=== PATIENT | female | born 1995 | race Caucasian/White ===

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

== ENCOUNTER 2023-03-04 18:23 | Emergency (ER) | payer BC, OTHER ==
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
[2023-03-04 18:46] VITALS: TEMP 98.6
[2023-03-04] MEDS ORDERED: ACETAMINOPHEN TAB 325 MG TAB PO STA (21:45)
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
[2023-03-04 22:20] VITALS: BP 115/74; PULSE 78; RESP 20
== END 2023-03-04 22:13 | disposition home or self-care (01) ==
LOC: EC 18:23
DX: O9A.213 Injury, poisoning and certain other consequences of external causes complicating pregnancy, third trimester (principal); M54.2 Cervicalgia; Z3A.35 35 weeks gestation of pregnancy; V89.2XXA Person injured in unspecified motor-vehicle accident, traffic, initial encounter; Y92.410 Unspecified street and highway as the place of occurrence of the external cause
CPT/HCPCS: 72050; 99284

== ENCOUNTER 2023-03-04 22:00 | Outpatient (CLI) | payer OTHER ==
[2023-03-04 23:28] VITALS: BP 114/60; PULSE 70; RESP 16; TEMP 97.1
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
== END 2023-03-04 22:50 | disposition home or self-care (01) ==
LOC: FBPOP 22:00
PROVIDERS: ATTEND Obstetrics & Gynecology
DX: O9A.213 Injury, poisoning and certain other consequences of external causes complicating pregnancy, third trimester (principal); Z3A.35 35 weeks gestation of pregnancy
CPT/HCPCS: 59025; 99213

== ENCOUNTER 2023-04-15 09:42 | Inpatient (IN) | payer OTHER ==
[2023-04-15] MEDS ORDERED: CARBOPROST TROMETHAMINE 250 MCG/ML 1 ML AMP IM PRN (10:14)
[2023-04-15] MEDS ORDERED: METHYLERGONOVINE 0.2 MG/ML 1 ML AMP IM PRN (10:14)
[2023-04-15] MEDS ORDERED: miSOPROStoL 200 MCG TAB PO PRN (10:14)
[2023-04-15] MEDS ORDERED: OXYTOCIN 10 UNIT/ML 1 ML VIAL IM PRN (10:14)
[2023-04-15] MEDS ORDERED: TERBUTALINE 1 MG/ML VIAL SQ PRN (10:14)
[2023-04-15] MEDS ORDERED: TRANEXAMIC 1,000 MG/100ML-NACL 1,000 MG in EMPTY BAG 1 BAG IV PRN (10:14)
[2023-04-15] MEDS ORDERED: OXYTOCIN 30 UNITS/500 ML NS 30 UNIT in SALINE 1 500ML.BAG IV SCH (10:15)
[2023-04-15] MEDS: LACTATED RINGERS 1,000 ML IV SCH (10:38)
[2023-04-15 10:54] LABS: Basophils % (A) 0 %; Eosinophils # (A) 0.1 k/uL (0-0.7); Eosinophils % (A) 1 %; HCT 34.7 % (34.0-46.0); HGB 11.5 gm/dL (11.4-16.0); Lymphocytes # (A) 1.5 k/uL (1.0-4.8); Lymphocytes % (A) 15 %; MCH 30.6 pg (25.0-35.0); MCHC 33.2 g/dL (31.0-37.0); MCV 92.3 fL (80.0-100.0); Mean Platelet Volume 7.7; Monocytes # (A) 0.5 k/uL (0-1.0); Monocytes % (A) 5 %; Neutrophils # (A) 7.3 k/uL (1.3-7.7); Neutrophils % (A) 76 %; Platelet Count 250 k/uL (150-450); RBC 3.76 m/uL (3.80-5.40); RDW 14.2 % (11.5-15.5); WBC 9.5 k/uL (3.8-10.6)
[2023-04-15] MEDS: OXYTOCIN 30 UNITS/500 ML NS 30 UNIT in SALINE 1 500ML.BAG IV SCH (11:24)
--- NOTE | 2023-04-15 12:22 | P.HPOB ---
History of Present Illness H&P Date: 04/15/23 Chief Complaint: Leaking of fluid This patient is a pleasant 28-year-old 1 para 0 female estimated date of confinement 04/08/2023 estimated gestational age 41-0/7 weeks who presents to labor and delivery with complaints of gush of fluid that happened earlier this morning. Renal care is per Dr. Garay appears to be uncomplicated. Review of Systems Genitourinary: Reports Menstruation: Reports amenorrhea Past Medical History Past Medical History: No Reported History History of Any Multi-Drug Resistant Organisms: None Reported Past Surgical History: No Surgical Hx Reported Past Anesthesia/Blood Transfusion Reactions: No Reported Reaction Past Psychological History: Anxiety Smoking Status: Former smoker, Vaper Past Alcohol Use History: None Reported Past Drug Use History: None Reported - Past Family History Mother Additional Family Medical History / Comment(s): diverticulitis Medications and Allergies Home Medications Medication Instructions Recorded Confirmed Type Vit No.179/Iron/Folic 1 each PO DAILY 03/04/23 04/15/23 History [ Tablet] Allergies Allergy/AdvReac Type Severity Reaction Status Date / Time No Known Allergies Allergy Verified 04/15/23 10:01 Exam Vital Signs Temp Pulse Resp BP Pulse Ox 04/15/23 11:12 97.2 F L 100 16 127/84 04/15/23 10:14 97.2 F L 100 16 127/84 100 Intake and Output 04/14/23 04/15/23 04/15/23 22:59 06:59 14:59 Other: Weight 81.647 kg - OBG Physical Exam Abdomen: bowel sounds normal, no diffuse tenderness, no bruit present, no guarding noted, no hepatomegaly, no splenomegaly, no mass Vulva: both: normal Vagina: normal moisture, no discharge Cervix: no lesion (Cervix is 3-4 cm dilated percent effaced -2 station with a bulging bag), no discharge Uterus: enlarged Results blood work shows she is AB+, rubella is equivocal, RPR is nonreactive, group B strep was negative, most recent ultrasound showed estimated weight 8 lbs. 4 oz. Result Diagrams: 04/15/23 10:35 Abnormal Lab Results - Last 24 Hours (Table) 04/15/23 Range/Units 10:35 RBC 3.76 L (3.80-5.40) m/uL Assessment and Plan Assessment: This is a pleasant 28-year-old 1 para 0 female 41-0/7 weeks gestation with spontaneous rupture membranes. Patient's having very irregular contractions and repeat exam shows no cervical change for this reason we'll begin augmentation of labor. At this point we anticipate vaginal delivery. (1) 41 weeks gestation of Current Visit: Yes Status: Acute Code(s): O48.0 - POST-TERM ; Z3A.41 - 41 WEEKS GESTATION OF SNOMED Code(s): 96730141 (2) Spontaneous rupture of amniotic membranes Current Visit: Yes Status: Acute Code(s): JOG9454 - SNOMED Code(s): 868190653
[2023-04-15] MEDS ORDERED: fentaNYL (PF) 50 MCG/ML 5 ML AMP ONE (16:00)
[2023-04-15] MEDS ORDERED: SODIUM CHLORIDE 0.9% 250 ML BAG ONE (16:00)
[2023-04-15] MEDS ORDERED: ROPIVACAINE 5 MG/ML 30 ML VIAL ONE (16:00)
[2023-04-16] MEDS ORDERED: BENZOCAINE/MENTHOL SPRAY 1 GM/SPRAY AEROSOL TOPICAL PRN (00:25)
[2023-04-16] MEDS ORDERED: diphenhydrAMINE 25 MG CAP PO PRN (00:25)
[2023-04-16] MEDS ORDERED: HYDROCORTISONE 2.5% RECTAL CREAM 30 GM TUBE RECTAL PRN (00:25)
[2023-04-16] MEDS ORDERED: ZOLPIDEM 5 MG TAB PO PRN (00:25)
[2023-04-16] MEDS ORDERED: SIMETHICONE 80 MG CHEWABLE PO PRN (00:25)
[2023-04-16] MEDS ORDERED: bisacodyL 10 MG SUPP RECTAL PRN (00:25)
[2023-04-16] MEDS ORDERED: diphenhydrAMINE 50 MG/ML 1 ML VIAL IVP PRN (00:25)
[2023-04-16] MEDS ORDERED: LANOLIN CREAM 5 GM TUBE TOPICAL PRN (00:25)
--- NOTE | 2023-04-16 00:31 | P.PROBDLV ---
Vaginal Delivery Note - . Vaginal Delivery Note: Normal vaginal delivery viable male infant Apgars 9 and 9 delivery time was 0005 hours. Please see dictated H&P for intimate details of this patient's admission. Brief summary this is a pleasant 28-year-old 1 para 0 female 41-0/7 weeks gestation admitted to labor and delivery with spontaneous rupture membranes approximately 7:00 this morning. On admission patient is 3-4 cm dilated. At that time there is a fore bag which is ruptured. Patient has Pitocin augmentation of labor and progresses. She does request an epidural for pain control and this is given with good relief. Patient does get to complete pushes for approximately 1 hour pushes the head to the perineum. At this time it is felt that the perineum was constricted therefore a midline episiotomy is made and immediately thereafter with 1 push pushes the head over the perineum i n a controlled fashion. Mouth and nares are bulb suctioned. There is no evidence of a nuchal cord. 's head is straight occiput anterior presentation. With gentle downward traction we then have deliver the anterior and posterior shoulder and rest this 's body. This is a vigorous viable male infant Apgars are 9 and 9 delivery time was 0005 hrs. After delivery of the infant, infant is laid on the mother's abdomen and after the cord is done pulsating is doubly clamped and cut. The placenta is then spontaneously delivered intact. Inspection of perineum shows second-degree laceration was repaired with 3-0 Vicryl usual fashion excellent reapproximation is noted. All counts are correct 3. There are no complications. and mother are stable in delivery room.
[2023-04-16] MEDS: IBUPROFEN 600 MG TAB PO PRN (01:06)
[2023-04-16] MEDS: LIDOCAINE 0.5% (PF) 5 MG/ML (50 ML SDV) SQ PRN (01:07)
[2023-04-16] MEDS: OXYTOCIN 30 UNITS/500 ML NS 30 UNIT in SALINE 1 500ML.BAG IV SCH (01:16)
--- NOTE | 2023-04-16 05:50 | P.PNOBGVD ---
Subjective - Subjective Patient reports: Reports appetite normal, Reports voiding normally, Reports pain well controlled, Reports ambulating normally : doing well Objective - Latest Vital Signs Latest vital signs: Vital Signs Temp Pulse Resp BP Pulse Ox 04/16/23 02:25 78 16 121/71 04/16/23 02:10 66 16 117/62 04/16/23 01:55 73 16 126/69 04/16/23 01:40 85 16 116/69 04/16/23 01:25 88 16 116/73 04/16/23 01:10 86 16 112/67 04/16/23 00:55 95 16 114/68 04/16/23 00:40 88 16 115/68 04/16/23 00:25 98.4 F 96 16 124/73 04/15/23 11:12 97.2 F L 100 16 127/84 04/15/23 10:14 97.2 F L 100 16 127/84 100 Intake and Output 04/15/23 04/15/23 04/16/23 14:59 22:59 06:59 Intake Total 500 Output Total 300 355 Balance 500 -300 -355 Intake: IV 500 Output: Urine 300 Estimated Blood Loss 100 Output, Quantitative 255 Blood Loss Other: # Voids 1 1 Weight 81.647 kg - Exam Lungs: bilateral: normal Chest: Normal S1, Normal S2 Extremities: Present: normal Abdomen: Present: normal appearance, soft Uterus: Present: normal, firm - Labs Labs: Abnormal Lab Results - Last 24 Hours (Table) 04/15/23 Range/Units 10:35 RBC 3.76 L (3.80-5.40) m/uL Assessment and Plan Assessment: day #0. Patient is resting without complaints. Vital signs are stable and she is afebrile. Uterus is firm nontender and she is having normal lochia. CBC is pending. My impression this is a normal course. Per n is to continue routine care and check a CBC. (1) 41 weeks gestation of Current Visit: Yes Status: Acute Code(s): O48.0 - POST-TERM ; Z3A.41 - 41 WEEKS GESTATION OF SNOMED Code(s): 04421008 (2) Spontaneous rupture of amniotic membranes Current Visit: Yes Status: Acute Code(s): WKR9702 - SNOMED Code(s): 098469077
[2023-04-16] MEDS: ACETAMINOPHEN TAB 325 MG TAB PO PRN (05:53)
[2023-04-16] MEDS: MEASLES-MUMPS-RUBELLA VACC/PF 12,500 UNIT/0.5 ML VIAL SQ ONE (05:55)
[2023-04-16] MEDS: SENNA LEAF EXTRACT SYRUP 528 MG/15 ML CUP PO SCH (08:33)
[2023-04-16] MEDS: SENNOSIDES-DOCUSATE SODIUM 1 EACH TAB PO SCH (08:33)
[2023-04-17 07:34] LABS: Basophils # (A) 0.1 k/uL (0-0.2); Basophils % (A) 0 %; Eosinophils # (A) 0.4 k/uL (0-0.7); Eosinophils % (A) 3 %; HCT 28.9 % (34.0-46.0); Lymphocytes # (A) 1.9 k/uL (1.0-4.8); Lymphocytes % (A) 15 %; MCHC 33.8 g/dL (31.0-37.0); MCV 91.7 fL (80.0-100.0); Mean Platelet Volume 8.2; Monocytes # (A) 0.5 k/uL (0-1.0); Monocytes % (A) 4 %; Neutrophils # (A) 9.3 k/uL (1.3-7.7); Neutrophils % (A) 75 %; Platelet Count 181 k/uL (150-450); RBC 3.15 m/uL (3.80-5.40); RDW 14.6 % (11.5-15.5); WBC 12.3 k/uL (3.8-10.6)
[2023-04-17 07:57] LABS: HGB 9.8 gm/dL (11.4-16.0)
--- NOTE | 2023-04-18 07:40 | P.DS ---
Providers Date of admission: 04/15/23 10:11 Expected date of discharge: 04/18/23 Attending physician: Karma Garay Primary care physician: Karma Garay - Discharge Diagnosis(es) (1) Normal vaginal delivery Current Visit: Yes Status: Acute Hospital Course: She presented in active labor. She underwent a normal vaginal delivery. course was uneventful. She denies nausea, vomiting, chest pain, shortness of breath or calf pain. Patient will be discharged home day #2 in stable condition to follow-up with me in 6 weeks. Plan - Discharge Summary New Discharge Prescriptions: New Ibuprofen [Motrin] 600 mg PO Q6HR PRN #30 tab PRN Reason: Mild Pain (Scale 1 To 3) No Action Vit No.179/Iron/Folic [ Tablet] 1 each PO DAILY Discharge Medication List Vit No.179/Iron/Folic [ Tablet] 1 each PO DAILY 03/04/23 [History] Ibuprofen [Motrin] 600 mg PO Q6HR PRN #30 tab 04/18/23 [Rx] Follow up Appointment(s)/Referral(s): Karma Garay DO [Primary Care Provider] - 05/27/23 3:45 pm Discharge Disposition: HOME SELF-CARE
[2023-04-18 07:44] VITALS: BP 118/74; PULSE 71; RESP 18; TEMP 97.7
== END 2023-04-18 11:00 | disposition home or self-care (01) | DRG 807 ==
LOC: FBPOP 09:42 → 4FBP 10:11
PROVIDERS: ADMIT Obstetrics & Gynecology; ATTEND Obstetrics & Gynecology
PROC: 10907ZC Drainage of Amniotic Fluid, Therapeutic from Products of Conception, Via Natural or Artificial Opening (ICD-10-PCS; 2023-04-15)
PROC: 10E0XZZ Delivery of Products of Conception, External Approach (ICD-10-PCS; principal; 2023-04-16)
PROC: 0KQM0ZZ Repair Perineum Muscle, Open Approach (ICD-10-PCS; principal; 2023-04-16)
PROC: 0W8NXZZ Division of Female Perineum, External Approach (ICD-10-PCS; principal; 2023-04-16)
DX: O48.0 Post-term pregnancy (principal); O70.1 Second degree perineal laceration during delivery; O99.344 Other mental disorders complicating childbirth; F41.9 Anxiety disorder, unspecified; Z87.891 Personal history of nicotine dependence; Z3A.41 41 weeks gestation of pregnancy; Z37.0 Single live birth
CPT/HCPCS: 59025; 84112; 85025; 86850; 86900; 86901; 88307; 90707; 99213

== ENCOUNTER 2023-12-21 18:08 | Emergency (ER) | payer OTHER, BC ==
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
[2023-12-21 19:21] LABS: Basophils # (A) 0.1 k/uL (0-0.2); Basophils % (A) 1 %; Eosinophils # (A) 0.1 k/uL (0-0.7); Eosinophils % (A) 1 %; HCT 43.6 % (34.0-46.0); HGB 14.1 gm/dL (11.4-16.0); Lymphocytes # (A) 2.5 k/uL (1.0-4.8); Lymphocytes % (A) 24 %; MCH 31.7 pg (25.0-35.0); MCHC 32.4 g/dL (31.0-37.0); MCV 97.8 fL (80.0-100.0); Mean Platelet Volume 6.3; Monocytes # (A) 0.4 k/uL (0-1.0); Monocytes % (A) 4 %; Neutrophils # (A) 7.4 k/uL (1.3-7.7); Neutrophils % (A) 69 %; Platelet Count 355 k/uL (150-450); RBC 4.46 m/uL (3.80-5.40); RDW 12.9 % (11.5-15.5); WBC 10.8 k/uL (3.8-10.6)
[2023-12-21 20:04] LABS: ALT 49 U/L (4-34); AST 92 U/L (14-36); African American GFR (CKD) >90 (>60 ml/min/1.73 sqM); Albumin 4.8 g/dL (3.5-5.0); Alkaline Phosphatase 70 U/L (38-126); Anion Gap 10 mmol/L; Blood Urea Nitrogen 10 mg/dL (7-17); Calcium 9.7 mg/dL (8.4-10.2); Carbon Dioxide 23 mmol/L (22-30); Chloride 109 mmol/L (98-107); Glucose 90 mg/dL (74-99); Non-African American GFR(CKD) >90 (>60 ml/min/1.73 sqM); Potassium 4.2 mmol/L (3.5-5.1); Sodium 142 mmol/L (137-145); Total Bilirubin 0.9 mg/dL (0.2-1.3); Total Protein 7.8 g/dL (6.3-8.2)
[2023-12-21 20:09] LABS: Alcohol 256 mg/dL
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
[2023-12-21] MEDS: LIDOCAINE 1% INJ 10MG/ML (20 ML MDV) SQ ONE (20:44)
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
[2023-12-21] MEDS: BACITRACIN OINT 1 EACH PACKET TOPICAL ONE (21:25)
[2023-12-21 21:26] VITALS: BP 128/76; PULSE 97; RESP 16
[2023-12-21 21:34] VITALS: TEMP 97.4
== END 2023-12-21 21:33 | disposition home or self-care (01) ==
LOC: EC 18:08
CPT/HCPCS: 12001; 36415; 70450; 71260; 72125; 74177; 80053; 80320; 81025; 85025; 93005; 99285

== ENCOUNTER → 2024-07-24 | Outpatient (CLI) | payer OTHER ==
--- NOTE | 2024-07-24 15:11 | US ---
EXAMINATION TYPE: US thyroid st tissue head/neck DATE OF EXAM: 07/24/2024 COMPARISON: NONE CLINICAL INDICATION: Female, 29 years old with history of E05.90 THYROTOXICOSIS; TECHNIQUE: Grayscale and color Doppler imaging of the thyroid gland. FINDINGS: GLAND SIZE: Right Lobe: 4.9 x 1.4 x 1.6 cm Overall Parenchyma: homogeneous Left Lobe: 4.5 x 1.0 x 1.4 cm Overall Parenchyma: homogeneous Isthmus Thickness: 0.3 cm NODULES RIGHT: # of nodules measured on right: 0 LEFT: # of nodules measured on left: 0 ISTHMUS: # of nodules measured in the isthmus: 0 Bilateral neck scanned, no evidence of lymphadenopathy. IMPRESSION: Unremarkable thyroid ultrasound without discrete nodule. [facility], , 07/24/2024 3:09 PM
== END | disposition home or self-care (01) ==
LOC: RADUSWWP 14:52
PROVIDERS: ATTEND Family Medicine
DX: E05.90 Thyrotoxicosis, unspecified without thyrotoxic crisis or storm (principal)
CPT/HCPCS: 76536